=== PATIENT | male | born 1970 | race Caucasian/White ===

== ENCOUNTER 2018-01-27 08:58 | Emergency (ER) | payer OTHER ==
[2018-01-27 09:12] VITALS: BP 121/76; PULSE 76; TEMP 98.9; BMI 23.6
--- NOTE | 2018-01-27 09:34 | PDOC ---
History of Present Illness - General Chief Complaint: Injury Stated Complaint: FINGER INJURY Time Seen by Provider: 01/27/18 09:14 History Source: Patient Exam Limitations: No Limitations (47y/o M with L middle finger pain X 3wks, s/p retained piece of wood) Past History - Past Medical History Allergies/Adverse Reactions: Allergies Allergy/AdvReac Type Severity Reaction Status Date / Time No Known Allergies Allergy Verified 01/27/18 09:11 Home Medications: Ambulatory Orders Ibuprofen 800 mg PO ACDIN #21 tablet 01/27/18 Asthma: Yes COPD: No - Immunization History Immunization Up to Date: Yes - Suicide/Smoking/Psychosocial Hx Smoking History: Current every day smoker Number of Cigarettes Smoked Daily: 30 Information on smoking cessation initiated: No Review of Systems - Review of Systems Is the patient limited Maori proficient: No Constitutional: No: Chills, Fever Musculoskeletal: No: Joint Pain Integumentary: No: Erythema *Physical Exam - Vital Signs Last Vital Signs Temp Pulse Resp BP Pulse Ox 98.9 F 76 18 121/76 99 01/27/18 09:06 01/27/18 09:06 01/27/18 09:06 01/27/18 09:06 01/27/18 09:06 - Physical Exam General Appearance: Yes: Appropriately Dressed Extremity: positive: Normal Inspection, Normal Range of Motion, Other (L 3rd finger: mild swelling in shaft, FROM) Medical Decision Making - Medical Decision Making 01/27/18 09:30 47y/o M with h/o Asthma, p/w left middle finger pain for 3 weeks. Patient is left-hand dominant. Patient reports he had a retained piece of wood in his finger, incident happened at work. He was seen at [facility] ED 12/21/17, workup consistent of xray that showed no FB and fx. He was started on 1wk of abx of which he completed. Pt presents here for 2nd options, states he thinks there is still retained wood. denies F/c, hand weakness. patient does not have a PCP. PE consistent with mild swelling in L 3rd finger shaft, no abscess, no swelling or erythema, FROM xray ordered f./u with PCP 01/27/18 10:03 xray neg for any foreign body. Patient instructed to f/u PCP for further evaluation, primary clinic info given. Patient also encouraged to soak finger. Signs and infections of infection discussed with patient. *DC/Admit/Observation/Transfer Diagnosis at time of Disposition: Finger pain, left - Discharge Dispostion Disposition: HOME Condition at time of disposition: Stable Admit: No - Prescriptions Prescriptions: Ibuprofen 800 mg PO ACDIN #21 tablet - Referrals Referrals: Pritesh Nazario MD [Staff Physician] - 1 week (Needs a PCP.) - Patient Instructions Printed Discharge Instructions: DI for Finger Sprain - Post Discharge Activity
== END 2018-01-27 10:11 | disposition home or self-care (01) ==
LOC: JERFT 08:58
DX: M79.645 Pain in left finger(s) (principal); J45.909 Unspecified asthma, uncomplicated; F17.210 Nicotine dependence, cigarettes, uncomplicated
CPT/HCPCS: 73130-TC-LR-FY; 99281-25